=== PATIENT | female | born 1960 | race Caucasian/White ===

== ENCOUNTER → 2017-11-12 | Outpatient (CLI) | payer OTHER | LOC: MAMMO 13:51 | PROVIDERS: ATTEND Internal Medicine | DX: Z12.31 Encounter for screening mammogram for malignant neoplasm of breast (principal) | CPT/HCPCS: 77067 ==

== ENCOUNTER → 2018-03-25 | Outpatient (CLI) | payer OTHER ==
--- NOTE | 2018-03-25 17:33 | Diagnostic Imaging Report ---
RIGHT FOOT X-RAY - 3 VIEWS HISTORY: ^[id number] ^[id number] COMPARISON: None available. FINDINGS: Bones: No acute displaced fracture. Well-corticated small bony fragment adjacent to the medial tarsal bones likely accessory bone. Osseous alignment is within normal limits. Joints: The joint spaces are well-maintained. Soft tissues: The soft tissues appear unremarkable. IMPRESSION: No acute radiographic abnormality. Signed by: Dr. Rose Cuellar M.D. on 03/25/2018 5:29 PM
== END ==
LOC: RAD 16:23
PROVIDERS: ATTEND Internal Medicine
DX: S99.921A Unspecified injury of right foot, initial encounter (principal)

== ENCOUNTER → 2018-11-03 | Outpatient (CLI) | payer OTHER ==
--- NOTE | 2018-11-08 13:00 | Polysomnography ---
DATE OF STUDY: REFERRING PHYSICIAN: STUDY: Polysomnography report. HISTORY OF PRESENT ILLNESS: The patient reports snoring, difficulty sleeping, and excessive daytime fatigue and somnolence. INTERPRETATION: The patient came to the laboratory for a diagnostic study. The patient slept for 394.5 minutes out of 435.5 minutes. The sleep efficiency was 90.6%. The sleep onset latency was 16.5 minutes. The latency to REM was 64.5 minutes. The patient spent 71.5 minutes in REM sleep, which was 18.1% of the night. The minimal saturation was 77%. The minimal heart rate was 42 beats per minute. There were no arrhythmias. The [place] sleep score was 7. The patient spent 4.7% of the night in the supine position and the remainder of the night in the non-supine position. There were 66 apneic events in 19 hypopneic events. The apnea-hypopnea index was 12.9 events per hour. IMPRESSION: Mild obstructive sleep apnea with increased [place] sleep score. RECOMMENDATIONS: 1. Second night sleep study with CPAP titration. 2. Avoid alcohol or sedatives prior to retiring at night. 3. Achieve and maintain an ideal body weight. MD ROSALINE Arellano/ARTEM /[id number]
== END ==
LOC: SLEEP 20:34
PROVIDERS: ATTEND Internal Medicine
DX: G47.30 Sleep apnea, unspecified (principal)
CPT/HCPCS: 95810

== ENCOUNTER → 2018-12-30 | Outpatient (CLI) | payer OTHER | LOC: MAMMO 10:01 | PROVIDERS: ATTEND Internal Medicine | DX: Z12.31 Encounter for screening mammogram for malignant neoplasm of breast (principal) | CPT/HCPCS: 77067 ==

== ENCOUNTER → 2019-01-12 | Outpatient (CLI) | payer OTHER ==
--- NOTE | 2019-01-13 09:15 | Diagnostic Imaging Report ---
#[id number] - MGDXRT #UNILATERAL RIGHT DIGITAL DIAGNOSTIC MAMMOGRAM WITH SPOT COMPRESSION: 01/12/2019 Comparison is made to exams dated: 12/30/2018 mammogram and 11/12/2017 mammogram - [facility]. Current study contains 3 films. There are scattered fibroglandular elements in the right breast. There is a benign 6 mm oval cyst with a circumscribed margin in the right breast at 6 o'clock anterior depth. This is seen in additional views. This correlates with ultrasound findings. No other significant masses or calcifications are seen in the breast. IMPRESSION: BENIGN See the report for ultrasound performed the same day for additional details. There is no mammographic evidence of malignancy. A 1 year screening mammogram is recommended. The patient will be notified by letter of the results. NIKOLAS lyon/penrad:01/12/2019 15:12:51 Anesthetic Assistant: Lor OATES)(Reji), [facility] letter sent: Normal Exam Mammogram BI-RADS: 2 Benign
--- NOTE | 2019-01-13 09:15 | Diagnostic Imaging Report ---
#[id number] - USBRELIMRT ULTRASOUND OF THE RIGHT BREAST : 01/12/2019 Comparison is made to exams dated: 01/12/2019 mammogram and 12/30/2018 mammogram - [facility]. Real-time ultrasound was performed on the right breast. There is a benign 5 mm oval cyst in the right breast at 6 o'clock in the retroareolar region. This oval cyst is anechoic. This correlates with mammography findings. IMPRESSION: BENIGN There is no sonographic evidence of malignancy. The 5 mm oval cyst in the right breast is benign. A 1 year screening mammogram is recommended. NIKOLAS BOND M.D. ct/penrad:01/12/2019 15:13:35 Spike Machine Operator: ERIKA BOB RDRI, [facility] letter sent: Normal Exam Ultrasound BI-RADS: 2 Benign
== END ==
LOC: MAMMO 13:40
PROVIDERS: ATTEND Internal Medicine
DX: N63.10 Unspecified lump in the right breast, unspecified quadrant (principal)

== ENCOUNTER 2019-06-26 16:46 | Outpatient (RCR) | payer OTHER | END 2019-07-11 | LOC: OT 16:46 | PROVIDERS: ATTEND Internal Medicine | DX: S49.91XA Unspecified injury of right shoulder and upper arm, initial encounter (principal) ==

== ENCOUNTER → 2020-01-19 | Outpatient (CLI) | payer OTHER | LOC: MAMMO 09:10 | PROVIDERS: ATTEND Internal Medicine | DX: Z12.31 Encounter for screening mammogram for malignant neoplasm of breast (principal) | CPT/HCPCS: 77067 ==

== ENCOUNTER → 2020-12-31 | Outpatient (CLI) | payer BC | LOC: RAD 15:32 | PROVIDERS: ATTEND Internal Medicine | DX: U07.1 COVID-19 (principal) | CPT/HCPCS: 71046 ==

== ENCOUNTER → 2021-02-03 | Outpatient (CLI) | payer BC | LOC: MAMMO 14:10 | PROVIDERS: ATTEND Internal Medicine | DX: Z12.31 Encounter for screening mammogram for malignant neoplasm of breast (principal) | CPT/HCPCS: 77067 ==